=== PATIENT | female | born 1980 | race Caucasian/White ===

== ENCOUNTER → 2016-10-19 | Outpatient (CLI) | payer OTHER ==
[~2016-10-19] MED LIST: ADIPEX-P37.5 MG PO; ASPIR 8181 MG PO; DOSS PO; PERCOCET 5/325 T1 EA PO; PHENERGAN 12.12.5 M1 PO
== END ==
LOC: KOH-I 10:21
DX: M25.461 Effusion, right knee (principal); S43.51XA Sprain of right acromioclavicular joint, initial encounter; M22.41 Chondromalacia patellae, right knee; M66.0 Rupture of popliteal cyst
CPT/HCPCS: 73721

== ENCOUNTER → 2016-10-24 | Outpatient (CLI) | payer OTHER | LOC: OPSV2 08:00 | DX: Z01.812 Encounter for preprocedural laboratory examination (principal); S83.511A Sprain of anterior cruciate ligament of right knee, initial encounter | CPT/HCPCS: 84703 ==

== ENCOUNTER → 2016-10-25 | Day surgery (SDC) | payer OTHER ==
[~2016-10-25] VITALS: Ht 162.6 cm; Wt 66.7 kg
== END | disposition home or self-care (01) ==
LOC: OR 06:41
PROVIDERS: Orthopaedic Surgery
PROC: 0YU Anatomical Regions, Lower Extremities, Supplement (ICD-10-PCS; principal; 2016-10-25 07:45)
DX: S83.511A Sprain of anterior cruciate ligament of right knee, initial encounter (principal); S83.281A Other tear of lateral meniscus, current injury, right knee, initial encounter; M94.261 Chondromalacia, right knee; Z79.899 Other long term (current) drug therapy; X50.1XXA Overexertion from prolonged static or awkward postures, initial encounter; Y93.44 Activity, trampolining
CPT/HCPCS: 73560; 76000; C1713; J0171; J0690; J1100; J1885; J2250; J2405; J2710; J2795; J3010; J7120

== ENCOUNTER → 2016-12-21 | Outpatient (CLI) | payer OTHER | LOC: KOH-I 13:29 | DX: M79.604 Pain in right leg (principal); R60.0 Localized edema | CPT/HCPCS: 93971 ==